=== PATIENT | male | born 1960 | race Caucasian/White ===

== ENCOUNTER → 2021-11-03 13:44 | Outpatient (BNVA) | payer MEDICARE, SELFPAY | PROVIDERS: PCP Family Medicine; Referring Provider Family Medicine; Visit Provider Specialist | DX: G40.309 Generalized idiopathic epilepsy and epileptic syndromes, not intractable, without status epilepticus (principal); F41.9 Anxiety disorder, unspecified; F32.A Depression, unspecified; I95.1 Orthostatic hypotension; C18.9 Malignant neoplasm of colon, unspecified; C78.89 Secondary malignant neoplasm of other digestive organs | CPT/HCPCS: 99204; 99205 ==